=== PATIENT | female | born 1955 | race Caucasian/White ===

== ENCOUNTER 2017-06-05 12:00 | Emergency (ER) | payer OTHER ==
[2017-06-05 12:43] VITALS: BP 122/75
[2017-06-05] MEDS ORDERED: Tetan/Diph/Pertus SYR(Tdap)* 0.5 ML SYR(BOOSTRIX) use SYR IM ONE (13:33)
--- NOTE | 2017-06-05 13:51 | UC ---
Respiratory Complaint HPI - HPI Summary HPI Summary: 3 DAYS OF PRODUCTIVE COUGH, CHEST CONGESTION AND RHINITIS. HAS LOW-GRADE FEVER , HEADACHE AND FATIGUE WELL. PATIENT HAS A CURRENT OUTBREAK OF GENITAL HERPES WHICH SHE STATES MIGHT EXPLAIN SOME OF THE BEFORE MENTIONED SYMPTOMS. SHE IS REQUESTING VALTREX. SHE ALSO IS CONCERNED THAT A LACERATION SHE SUSTAINED TO HER RIGHT FOURTH FINGER ABOUT A WEEK AGO HAS BECOME INFECTED. IT IS RED AND TENDER. UNKNOWN DATE OF LAST TETANUS. - History of Current Complaint Chief Complaint: UCRespiratory Stated Complaint: COUGH,HEADACHE Time Seen by Provider: 06/05/17 13:12 Hx Obtained From: Patient Onset/Duration: Gradual Onset, Lasting Hours, Lasting Days, Still Present Severity Initially: Moderate Severity Currently: Moderate Pain Intensity: 0 Pain Scale Used: 0-10 Numeric Character: Cough: Productive Aggravating Factors: Nothing Alleviating Factors: Nothing Associated Signs And Symptoms: Positive: Fever, URI, Nasal Congestion. Negative : Dyspnea, Wheezing - Allergies/Home Medications Allergies/Adverse Reactions: Allergies Allergy/AdvReac Type Severity Reaction Status Date / Time Penicillins Allergy Severe Anaphylatic Verified 06/05/17 12:47 Shock PMH/Surg Hx/FS Hx/Imm Hx - Additional Past Medical History Additional PMH: GENITAL HERPES - Surgical History Surgical History: Yes Surgery Procedure, Year, and Place: BREAST IMPLANTS - SILICONE IMPLANTS WERE REPLACED WITH SALINE IMPLANTS. APPENDECTOMY - Family History Known Family History: Positive: Hypertension, Respiratory Disease - SISTER LUNG [place] - Social History Alcohol Use: Occasionally Substance Use Type: None Smoking Status (MU): Heavy Every Day Tobacco Smoker Type: Cigarettes Amount Used/How Often: 1/2 ppd Length of Time of Smoking/Using Tobacco: 40+ yrs Have You Smoked in the Last Year: Yes Review of Systems Constitutional: Negative - Fighting here at work. Advisedly recommended name and , Fever, Fatigue Skin: Other - GENITAL HERPES OUTBREAK. RIGHT 4TH FINGER REDNESS ENT: Nasal Discharge Respiratory: Cough Cardiovascular: Negative Gastrointestinal: Negative Genitourinary: Negative Musculoskeletal: Edema - RIGHT 4TH FINGER All Other Systems Reviewed And Are Negative: Yes Physical Exam Triage Information Reviewed: Yes Appearance: Well-Appearing, No Pain Distress, Well-Nourished Vital Signs: Initial Vital Signs Temp 101.8 F 06/05/17 12:39 Pulse 90 06/05/17 12:39 Resp 18 06/05/17 12:39 BP 122/75 06/05/17 12:39 Pulse Ox 98 06/05/17 12:39 Vital Signs Reviewed: Yes Eyes: Positive: Conjunctiva Clear ENT: Positive: Hearing grossly normal, Pharynx normal, Nasal congestion, TMs normal Neck: Positive: Supple, Nontender, No Lymphadenopathy Respiratory Exam: Normal Cardiovascular Exam: Normal Abdomen Description: Positive: Soft Musculoskeletal: Positive: Edema @ - RIGHT 4TH FINGER DISTALLY Neurological: Positive: Alert Psychological: Positive: Age Appropriate Behavior Skin: Positive: Other - DISTAL RIGHT 4TH FINGER 8MM LACERATION MEDIAL ASPECT WITH SURROUNDING ERYTHEMA AND EDEMA. NO DRAINAGE OR ACTIVE BLEEDING UC Diagnostic Evaluation - Laboratory O2 Sat by Pulse Oximetry: 98 Respiratory Course/Dx - Differential Dx/Diagnosis Provider Diagnoses: 1. ACUTE BRONCHITIS. 2. CELLULITIS RIGHT 4TH FINGER. 3. GENITAL HERPES. 4. TDAP BOOSTER Discharge - Sign-Out/Discharge Documenting (check all that apply): Discharge/Admit/Transfer - Discharge Plan Condition: Stable Disposition: HOME Prescriptions: Benzonatate CAP* [Tessalon CAP*] 1 - 2 cap PO TID PRN #30 cap PRN Reason: Cough Sulfamethox/Trimethoprim DS* [Bactrim DS 800/160 TAB*] 1 tab PO BID #20 tab Valacyclovir HCl [Valacyclovir] 500 mg PO BID #6 tablet Patient Education Materials: Genital Herpes Simplex (ED), Cellulitis (ED), Acute Bronchitis (ED) Referrals: Yessica Choudhury MD [Primary Care Provider] - If Needed Additional Instructions: YOUR BRONCHITIS SYMPTOMS ARE LIKELY VIRALLY MEDIATED AND SHOULD RESOLVE ON THEIR OWN WITH TIME. NO INDICATION FOR ANTIBIOTICS FOR THIS BUT WE ARE TREATING YOU FOR SKIN INFECTION WITH ANTIBIOTICS ANYWAY. REST, HYDRATE, OTC MEDS NEEDED. WILL TREAT WITH COUGH MEDICINE WELL. SEEK FOLLOW-UP IF YOU ARE NOT IMPROVING OVER THE NEXT 1-2 WEEKS. YOUR FINGER APPEARS INFECTED. THE BACTRIM SHOULD COVER THIS. TDAP BOOSTED TODAY WELL. KEEP CLEAN AND DRY. TETANUS IMMUNIZATION GIVEN (TDAP): You have been given an immunization against tetanus. Please record this in your records. In general, a booster is needed only once every 10 years. The tetanus shot protects against tetanus or "lockjaw," which is a complication of certain wound infections (the tetanus shot cannot protect against the actual infection). The immunization site may become warm and red due to local reaction. If this occurs, apply warm compresses and take aspirin or ibuprofen to reduce inflammation and discomfort. Return for evaluation if the reaction becomes severe. VALTREX REFILLED FOR ACUTE HERPES OUTBREAK. FOLLOW-UP WITH YOUR PCP. - Billing Disposition and Condition Condition: STABLE Disposition: HOME
== END 2017-06-05 13:50 | disposition home or self-care (01) ==
LOC: UCEAST 12:00
DX: J20.9 Acute bronchitis, unspecified (principal); L03.011 Cellulitis of right finger; A60.00 Herpesviral infection of urogenital system, unspecified; Z23 Encounter for immunization; Z88.0 Allergy status to penicillin; F17.210 Nicotine dependence, cigarettes, uncomplicated
CPT/HCPCS: 90471; 90715; 99212; G0463